=== PATIENT | male | born 2000 | race Two or more races ===

== ENCOUNTER 2024-02-10 10:53 | Day surgery (SDC) | payer OTHER, SELFPAY ==
--- NOTE | ~2024-02-10 | CT_ITS ---
EXAMINATION: CT CHEST WITH CONTRAST CLINICAL INFORMATION: Alkali ingestion COMPARISON: None available. TECHNIQUE: Multidetector volumetric CT imaging of the chest was obtained after the administration of 50 mL of Omnipaque 350 intravenous contrast without immediate adverse reactions. Axial MIP volume rendering provided. Sagittal and coronal reformatted images were obtained. This CT examination was performed using dose optimization techniques as appropriate, variously including the following: *Automated exposure control *Adjustment of mA and/or kV according to patient size (this includes techniques or standardized protocols for targeted exams where dose is matched to indication/reason for exam; i.e. extremities or head) *Use of iterative reconstruction technique DLP: 402 mGy-cm FINDINGS: LUNGS/PLEURA: 2 mm nodule right upper lobe (series 5, image 159). 3 mm nodule anterior aspect left lower lobe (series 5, image 201). No focal consolidation. No pneumothorax. Left basilar atelectasis. Central airways are patent. MEDIASTINUM: Heart is not enlarged. No pericardial effusion. No coronary artery calcifications. Aorta is nonaneurysmal. Main pulmonary artery is not enlarged. No enlarged lymph nodes per size criteria. Visualized portions of the thyroid are unremarkable. Visualized portions of the thoracic esophagus are unremarkable. AXILLA: No lymphadenopathy. UPPER ABDOMEN: Slightly decreased hepatic attenuation suggesting hepatic steatosis. OSSEOUS STRUCTURES: Unremarkable. CT/CT chest w IV con IMPRESSION: 1. No acute process of the chest identified. 2. Bilateral pulmonary nodules the largest measuring up to 3 mm. Follow-up as per Fleischner criteria. 3. Slightly decreased hepatic attenuation suggesting hepatic steatosis. Various management parameters for solitary pulmonary nodules are in the literature. According to the Fleischner Society, recommendations for pulmonary nodules are as follows: According to the UPDATED 2017 Fleischner Society recommendations, the advised follow-up imaging for solid nodules < 6 mm is: HIGH RISK PATIENT: Optional CT at 12 months.
[2024-02-10 10:55] VITALS: BP 138/90; PULSE 74; RESP 74; TEMP 36.9; O2SAT 97; BMI 38.2
--- NOTE | 2024-02-10 11:11 | PC.NURSE ---
Called [facility] regarding patient instructed should get a chest xray or ct scan to check for aspiration. keep npo have him rinse his mouth out in a couple hours check for blisters or irritation. Will notify MD and RN taking care of patient.
[2024-02-10 11:22] VITALS: PULSE 84; RESP 16; O2SAT 98
--- NOTE | 2024-02-10 11:23 | PC.NURSE ---
NO VOMITING, STATES IRRITATION WITH SWALLOWING, HANDLES SECRETION, AWAITING PROVIDER
--- NOTE | 2024-02-10 11:26 | ED_ITS ---
[facility] - General Adult General Chief complaint: General Medical Stated complaint: Ingested chemical? Time Seen by Provider: 02/10/24 11:12 Source: patient Mode of arrival: ambulatory History of Present Illness [facility] narrative: 23-year-old male with history and clinical presentation of accidental ingestion of alkaline based liquid that blew up in his face and he inadvertently swallowed, the chemical is used to clean parts at his work. Patient reports vomiting once. Denies eye contact and reports burning in the back of his throat. Related Data Allergies Allergy/AdvReac Type Severity Reaction Status Date / Time No Known Allergies Allergy Verified 02/10/24 10:56 Review of Systems 2 Review of Systems: Pertinent positives and negatives as stated in [facility] Past Medical History Source: nursing notes reviewed Social History Social History Smoked in Last 30 Days: No Use of substances other than those prescribed or required for medical reasons: No Advance Directives: No Advance Directives Information Provided: No Do you have a plan to hurt others: No Plan Physical Exam ED Vital Signs: Vital Signs - 24 hr 02/10/24 10:55 02/10/24 11:22 02/10/24 13:38 Temperature 98.5 F 98.3 F Pulse Rate 74 84 69 Respiratory Rate 74 H 16 16 Blood Pressure 138/90 H 108/74 Pulse Oximetry 97 98 99 Oxygen Delivery Method Room Air Room Air Room Air 02/10/24 15:01 02/10/24 15:17 Temperature 97.7 F 97.7 F Pulse Rate 86 85 Respiratory Rate 17 18 Blood Pressure 120/71 126/83 Pulse Oximetry 97 97 Oxygen Delivery Method Room Air Room Air BMI result Body Mass Index 38.2 VITAL SIGNS: Reviewed. GENERAL: Well developed, well nourished, in no acute distress. HEAD: Normocephalic/atraumatic EYES: PERRLA, EOMI, no irritation or lesions noted EARS: Ext canals without abnormality NOSE: Nares patent bilateral OROPHARYNX: no oral lesions noted, posterior pharynx clear and non-erythematous without noted tonsillar enlargement/erythema/exudates, no blisters or lesions noted NECK: Supple, no adenopathy LUNGS: Normal breath sounds. No adventitious sounds or accessory muscle use. SpO2<98> CARDIOVASCULAR: Regular rate and rhythm without noted murmurs, no JVD or lower extremity edema. ABDOMEN: Soft, non-tender, non-distended with bowel sounds. MUSCULOSKELETAL: No tenderness, deformities, or effusions noted on gross inspection. EXTREMITIES: No cyanosis, clubbing or edema. SKIN: Inspection of the skin reveals no rashes NEUROLOGIC: Alert and oriented x 4. Strength and sensation to light touch were grossly intact x 4. Medications Administered Discontinued Medications Generic Name Dose Route Start Last Admin Trade Name Freq PRN Reason Stop Dose Admin Iohexol 65 ml 02/10/24 13:07 02/10/24 13:09 Iohexol 350 Mg/Ml 100 Ml Infus..Btl IV 02/10/24 13:08 65 ml ONCE ONE Administration Ondansetron HCl 4 mg 02/10/24 11:45 02/10/24 12:23 Ondansetron Hcl 4 Mg/2 Ml Vial IVPUSH 02/10/24 11:46 4 mg ONCE ONE Administration Medical Decision Making Medical Decision Making MDM Narrative: 23-year-old male with history and clinical presentation of accidental ingestion of alkaline pH liquids. Last meal 529, reports burning in the back of his throat without obvious lesions. 1213: I discussed case with Dr. Méndez, gastroenterology who recommends CT with IV contrast of chest to include upper abdomen and will perform upper endoscopy this afternoon as well, he is in agreement for NPO. I reviewed all investigations and hematologic indices are negative for leukocytosis/left shift/anemia/thrombocytopenia. VBG demonstrates pH-7.40 and chemistry indices are negative for GIANA or electrolyte derangements there is subtle detected transaminases without associated fever/chills/abdominal discomfort. Awaiting CT scan results and plan for patient to go to the OR for EGD. 1507: CT scan of the chest benign in nature, there are no acute findings. Patient has been transferred up to the OR for EGD. 1555: I confirmed that patient is discharged from the PACU. Differential Diagnosis Differential Diagnoses: The differential diagnosis associated with the presentation includes Please see the discussion above Admission/Observation Consideration of admission/observation: Escalation of care including admission/observation considered Please see the discussion above Consult Healthcare Provider Management of the patient was discussed with: Drill Hand Please see the discussion above Lab Data MDM Lab Attestation statement: I reviewed the patient's lab results. Please see the discussion above 02/10/24 12:22 02/10/24 12:22 Labs: Lab Results 02/10/24 02/10/24 02/10/24 Range/Units 12:22 12:23 14:17 WBC 6.2 (4.8-10.8) X10*3/uL RBC 4.87 (4.60-5.80) X10*6/uL Hgb 14.3 (14.0-18.0) g/dl Hct 41.4 L (42.0-52.0) % MCV 85.0 (80.0-98.0) fL MCH 29.4 (27.0-33.0) pg MCHC 34.5 (31.0-36.0) g/dl RDW 11.6 (11.0-16.0) % Plt Count 245 (160-400) X10*3/uL MPV 9.9 (9.4-12.4) fL Immature Gran % (Auto) 0.2 (0.0-0.4) % Neut % (Auto) 51.4 (45-73) % Lymph % (Auto) 36.9 (20-40) % [place] % (Auto) 8.8 (2-11) % Eos % (Auto) 2.1 (0-4) % Baso % (Auto) 0.6 (0-2) % Lymph # (Auto) 2.3 (1.2-4.9) X10*3/uL [place] # (Auto) 0.6 (0.1-1.2) X10*3/uL Eos # (Auto) 0.1 (0.0-0.4) X10*3/uL Baso # (Auto) 0.0 (0.0-0.2) X10*3/uL Abs Immat Gran (auto) 0.01 (0.00-0.03) X10*3/uL Absolute Neuts (auto) 3.2 (2.0-8.3) x10*3/uL Absolute Nucleated RBC 0.000 (0.0-0.012) X10*3/uL Nucleated RBC % (auto) 0.0 (0.0-0.2) /100WBC VBG pH 7.40 (7.32-7.43) VBG pCO2 45 mmHg VBG pO2 53 mmHg VBG HCO3 28 H (22-26) mmol/L VBG O2 Saturation 84.0 % VBG Base Excess 2.9 mmol/L Sodium 143 (135-145) mmol/L Potassium 3.5 (3.3-5.1) mmol/L Chloride 104 (96-108) mmol/L Carbon Dioxide 26 (22-29) mmol/L Anion Gap 17 (12-20) BUN 12 (9-16) mg/dL Creatinine 0.81 (0.5-1.4) mg/dL Estim Creat Clear Calc 170.7 Estimated GFR > 60 Random Glucose 83 (60-115) mg/dL Calcium 10.0 (8.4-10.2) mg/dL Total Bilirubin 0.6 (0.0-1.0) mg/dL AST 53 H (5-37) U/L ALT 62 H (0-40) U/L Alkaline Phosphatase 60 (39-117) U/L Total Protein 8.6 H (6.5-8.0) g/dL Albumin 4.7 (3.5-5.0) g/dL Urine Color Yellow Urine Appearance Clear Urine pH 6.0 (5.0-9.0) Ur Specific [place] >= 1.030 H (1.005-1.025) Urine Protein Negative (Neg-Trace) mg/dL Urine Glucose (UA) Negative (Negative) mg/dL Urine Ketones 15 (Negative) mg/dL Urine Blood Negative (Negative) Urine Nitrite Negative (Negative) Ur Leukocyte Esterase Negative (Negative) Radiology Impression Discussion of test interpretation with radiology: I have reviewed the radiologist's reading. Radiologist Impression: Please see the discussion above Critical Care Time Critical Care Time Critical Care Time: Yes Total Critical Care Time: 60 Attestation: I personally attest to this time spent taking care of the patient. Discharge Plan Discharge Clinical Impression: Accidental ingestion of toxic substance Patient Disposition: Home, Self-Care Discharge Date/Time: 02/10/24 14:45
--- NOTE | 2024-02-10 12:20 | PC.NURSE ---
20gIV placed in the left forearm - labs obtained/sent to lab. pt speaking w/ Dr. Montalvo in regards to plan of care at this time. pt c/o burning sensation/itchiness in throat throughout post ingestion of chemical. pt denies pain. airway patent. pt able to speak in full/clear sentences w/o difficulty. no sob/wob noted. respirations even and unlabored. pt positioned upright to promote patent airway. plan of care ongoing. call guillen placed within reach.
[2024-02-10] MEDS: ondansetron HCL 4 MG/2 ML VIAL IVPUSH (12:23)
[2024-02-10 12:27] LABS: MANUAL DIFF FLAG NO
[2024-02-10 12:29] LABS: Basophils Percent Auto 0.6 % (0-2); Eosinophils Absolute Auto 0.1 X10*3/uL (0.0-0.4); Eosinophils Percent Auto 2.1 % (0-4); Hematocrit 41.4 % (42.0-52.0); Hemoglobin 14.3 g/dl (14.0-18.0); Imm Gran Abs Auto 0.01 X10*3/uL (0.00-0.03); Imm Gran Pct Auto 0.2 % (0.0-0.4); Lymphocytes Absolute Auto 2.3 X10*3/uL (1.2-4.9); Lymphocytes Percent Auto 36.9 % (20-40); Mean Corpuscular HGB Conc 34.5 g/dl (31.0-36.0); Mean Corpuscular Hemoglobin 29.4 pg (27.0-33.0); Mean Platelet Volume 9.9 fL (9.4-12.4); Monocytes Absolute Auto 0.6 X10*3/uL (0.1-1.2); Monocytes Percent Auto 8.8 % (2-11); Neutrophils Absolute Auto 3.2 x10*3/uL (2.0-8.3); Neutrophils Percent Auto 51.4 % (45-73); Platelet Count 245 X10*3/uL (160-400); Red Blood Count 4.87 X10*6/uL (4.60-5.80); Red Cell Distribution Width 11.6 % (11.0-16.0); White Blood Count 6.2 X10*3/uL (4.8-10.8)
[2024-02-10 12:30] LABS: Venous Blood Gas Refer to POC result
[2024-02-10 12:31] LABS: VBG Base Excess 2.9 mmol/L; VBG HCO3 28 mmol/L (22-26); VBG pCO2 45 mmHg; VBG pO2 53 mmHg
[2024-02-10 12:44] LABS: Alanine Aminotransferase 62 U/L (0-40); Albumin Level 4.7 g/dL (3.5-5.0); Alkaline Phosphatase 60 U/L (39-117); Anion Gap 17 (12-20); Aspartate Amino Transferase 53 U/L (5-37); Bilirubin Total 0.6 mg/dL (0.0-1.0); Blood Urea Nitrogen 12 mg/dL (9-16); Carbon Dioxide 26 mmol/L (22-29); Chloride 104 mmol/L (96-108); Creatinine Clr Calc Pharmacy 170.7; Estimated Glomerular Filt Rate > 60; Glucose Random 83 mg/dL (60-115); Potassium 3.5 mmol/L (3.3-5.1); Sodium 143 mmol/L (135-145); Total Protein 8.6 g/dL (6.5-8.0)
--- NOTE | 2024-02-10 13:04 | PC.NURSE ---
pt to CT at this time.
[2024-02-10] MEDS: iohexoL 350 MG/ML 100 ML INFUS..BTL 65 ML IV (13:09)
[2024-02-10 13:38] VITALS: BP 108/74; PULSE 69; RESP 16; TEMP 36.8; O2SAT 99
--- NOTE | 2024-02-10 13:39 | PC.NURSE ---
pt returned from CT at this time. vss and up to date. nsr on the cardiac sonographer. pt denies pain. airway remains patent. no sob/wob noted. respirations remain even and unlabored. partner bedside. call guillen placed within reach.
--- NOTE | 2024-02-10 13:49 | MHC.SHP ---
Pre-Procedural Eval Section A - 24 Hr Update-Section A only Date of Service: 02/10/24 The patient is an INPATIENT: No Changes since office visit: No Cold of Flu in the past 2 weeks, No New Medical Problems, No Changes in Medication and No Patient answered all questions The patient has been examined within 24 hours of the surgical procedure. The History & Physical has been completed within 30 days and I have reviewed it.: Yes Section B - Complete if H&P > 30 days Chief Complaint: Ingested chemical? Allergies: Allergies Allergy/AdvReac Type Severity Reaction Status Date / Time No Known Allergies Allergy Verified 02/10/24 10:56 Plan I have reviewed the history and physical and performed a pertinent physical examination on my patient. No changes have occurred unless specified. Time Spent With Patient Time: Total time managing care of this patient today ____ minutes.
--- NOTE | 2024-02-10 14:19 | PC.NURSE ---
report given to BHARGAV Nunez in OR at this time.
--- NOTE | 2024-02-10 14:27 | HO.ANESPROP2 ---
[facility] Active Problems Active Problems: All Active Problems Accidental ingestion of toxic substance (Acute) Past Medical History Functional capacity: independent ambulation Family History Family history of problems with anesthesia: No Surgical History History of Problems with Anesthesia: No Social History Social History Smoked in Last 30 Days: No Use of substances other than those prescribed or required for medical reasons: No Advance Directives: No Advance Directives Information Provided: No Do you have a plan to hurt others: No Plan Meds Allergies Allergy/AdvReac Type Severity Reaction Status Date / Time No Known Allergies Allergy Verified 02/10/24 10:56 Exam Height,Weight and Vital Signs: Height 5 ft 8 in Weight 113.9 kg Last Vital Signs Temp 98.3 F 02/10/24 13:38 Pulse 69 02/10/24 13:38 Resp 16 02/10/24 13:38 BP 108/74 02/10/24 13:38 Pulse Ox 99 02/10/24 13:38 O2 Del Method Room Air 02/10/24 13:38 Pertinent Lab Results Pertinent Lab Results: Laboratory Tests 02/10/24 02/10/24 12:22 12:23 WBC 6.2 RBC 4.87 Hgb 14.3 Hct 41.4 L MCV 85.0 MCH 29.4 MCHC 34.5 RDW 11.6 Plt Count 245 MPV 9.9 Immature Gran % (Auto) 0.2 Neut % (Auto) 51.4 Lymph % (Auto) 36.9 [place] % (Auto) 8.8 Eos % (Auto) 2.1 Baso % (Auto) 0.6 Lymph # (Auto) 2.3 [place] # (Auto) 0.6 Eos # (Auto) 0.1 Baso # (Auto) 0.0 Abs Immat Gran (auto) 0.01 Absolute Neuts (auto) 3.2 Absolute Nucleated RBC 0.000 Nucleated RBC % (auto) 0.0 VBG pH 7.40 VBG pCO2 45 VBG pO2 53 VBG HCO3 28 H VBG O2 Saturation 84.0 VBG Base Excess 2.9 Sodium 143 Potassium 3.5 Chloride 104 Carbon Dioxide 26 Anion Gap 17 BUN 12 Creatinine 0.81 Estim Creat Clear Calc 170.7 Estimated GFR > 60 Random Glucose 83 Calcium 10.0 Total Bilirubin 0.6 AST 53 H ALT 62 H Alkaline Phosphatase 60 Total Protein 8.6 H Albumin 4.7 Airway Mallampati Class: II TM Dist: >3cm Neck ROM: Full Heart: RRR Lungs: CTA Assessment and Plan Assessment Anesthesia Assessment: Anesthesia Plan Discussed Final Anesthetic Review Family History of Problems with Anesthesia: No History of Problems with Anesthesia: No NPO: Yes ASA Class: II and Emergency Final Preanesthetic Review: Meds/Allgs Chart Reviewed, Consent Obtained/Reviewed and Anes Risks/Benef Reviewed Patient Risk: Intermediate Procedure Risk: Low Anesthetic Plan Anesthetic Plan: MAC: and Other Disposition: Standard PACU
[2024-02-10 14:30] LABS: Appearance Urine Clear; Color Urine Yellow; Glucose Urine UA Negative (Negative); Leukocyte Esterase Urine Negative (Negative); Nitrite Urine Negative (Negative); Specific Gravity - Urine >= 1.030 (1.005-1.025); Urine Blood Negative (Negative); Urine Ketones 15 mg/dL (Negative); Urine Protein Negative (Neg-Trace)
--- NOTE | 2024-02-10 14:34 | PC.NURSE ---
pt being transferred to have endoscopy completed at this time.
--- NOTE | 2024-02-10 15:00 | PM.OP ---
Brief Operative Note Date of Service: 02/10/24 Pre-op diagnosis: caustic ingestion Post-op diagnosis: same Procedure: EGD Surgeon: Vito Méndez MD Anesthesia: MAC Was an Recreation Professor used for this Procedure?: No Estimated blood loss (mL): 2 Pathology: other Condition: stable Disposition: PACU
[2024-02-10 15:01] VITALS: BP 120/71; PULSE 86; RESP 17; TEMP 36.5; O2SAT 97
--- NOTE | 2024-02-10 15:10 | HO.POSTANES ---
Post Anesthesia Evaluation Post Anesthesia Evaluation Date of Service: 02/10/24 Vital Signs: Vital Signs Temp Pulse Resp BP Pulse Ox O2 Del Method 02/10/24 15:01 97.7 F 86 17 120/71 97 Room Air 02/10/24 13:38 98.3 F 69 16 108/74 99 Room Air 02/10/24 11:22 84 16 98 Room Air 02/10/24 10:55 98.5 F 74 74 H 138/90 H 97 Room Air Anesthesia: Monitored Mental Status: Awake Pain Control: Satisfactory Nausea/Vomiting: None Hydration: Adequate Anesthesia-Related Issues: No Anes. Related Issues
[2024-02-10 15:17] VITALS: BP 126/83; PULSE 85; RESP 18; TEMP 36.5; O2SAT 97
--- NOTE | 2024-02-10 23:18 | OP_ITS ---
DATE OF SERVICE: 02/10/2024 SURGEON: Vito Méndez MD INDICATIONS: Caustic ingestion. PREOPERATIVE DIAGNOSIS: POSTOPERATIVE DIAGNOSIS: PROCEDURE PERFORMED: ESTIMATED BLOOD LOSS: COMPLICATIONS: ANESTHESIA: ASSISTANTS: SPECIMENS: PROCEDURE: Upper endoscopy with biopsy. MEDICATIONS: Monitored anesthesia care. DESCRIPTION OF PROCEDURE: A history and physical performed. The risks and benefits of the procedure were explained to the patient. Informed consent was obtained. The patient was placed in a left lateral decubitus position. The Olympus video gastroscope was introduced into the esophagus, stomach, and duodenum. Examination was performed. The scope was removed. He tolerated the procedure well and was taken to recovery area in stable condition. FINDINGS: Esophagus: The esophagus was normal. There was no evidence of erythema or chemical esophagitis. Stomach: Showed no evidence of masses, ulcers, or polyps. Antral biopsies were obtained to rule out H pylori. Duodenum: The bulb and 2nd portion were normal. IMPRESSION: Normal upper endoscopy. No esophagitis. RECOMMENDATIONS: The patient may be discharged to home. He can start with liquids and advance his diet as tolerated. MD BRET Weller/TATIANA / [id number] MTDD
--- NOTE | 2024-02-10 23:59 | CONS_ITS ---
DATE OF SERVICE: 02/10/2024 REFERRING PHYSICIAN: Dr. Montalvo REASON FOR CONSULTATION: Caustic ingestion. HISTORY OF PRESENT ILLNESS: The patient is a healthy 23-year-old man who was brought by ambulance to the emergency department today after a caustic ingestion at work. 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 The chemical material safety data sheet are reviewed and it appears to contain sodium carbonate and sodium hydroxide. He complains of a burning sensation in the back of his throat. He denies any difficulty swallowing. He did induce vomiting immediately after the ingestion in and presented to the emergency department. He denies any prior history of toxic ingestions. He has never had esophageal problems, reflux, or peptic ulcer disease. PAST MEDICAL HISTORY: He denies other medical or surgical illnesses. CURRENT MEDICATIONS: He is not take any routine medications. ALLERGIES: THERE ARE NONE REPORTED. FAMILY HISTORY: This is reviewed with the patient, is noncontributory. SOCIAL HISTORY: There is no current substance abuse. REVIEW OF SYSTEMS: SKIN: No pruritus. HEENT: Negative. CARDIOPULMONARY: He denies shortness of breath or chest pain. GASTROINTESTINAL: As above. GENITOURINARY: Negative. NEUROPSYCHIATRIC: Negative. PHYSICAL EXAMINATION: GENERAL: Shows a pleasant male, lying comfortably in bed. VITAL SIGNS: Reviewed in the electronic medical record and are stable. SKIN: Anicteric. HEENT: Shows no scleral icterus. Oropharynx exam is normal. NECK: Without lymphadenopathy or thyromegaly. LUNGS: Clear. HEART: Shows a regular rate and rhythm. S1, S2. No murmur. ABDOMEN: Soft. No focal masses or tenderness. Bowel sounds are present. No organomegaly is noted. EXTREMITIES: Without edema. DIAGNOSTIC DATA: Laboratory data including blood work is reviewed. Imaging of his chest and abdomen have been obtained. Final report is pending, but I do not see any obvious esophageal issues on preliminary review of the CT scan. IMPRESSION: Caustic ingestion. PLAN: We will await the final report on his CT scan. We will plan endoscopy following this to evaluate for any endoscopic evidence of damage to the esophagus or stomach from the caustic ingestion. He understands risks and benefits and agrees to proceed. Thanks for asking me to see him. I will follow him in the hospital with you. MD BRET Weller/TATIANA / [id number]
== END 2024-02-10 15:24 | disposition home or self-care (01) ==
LOC: HO.ED 12:33 → HO.SSS 12:59
PROVIDERS: Internal Medicine Gastroenterology; Emergency Provider Student in an Organized Health Care Education/Training Program; Visit Provider Student in an Organized Health Care Education/Training Program
PROC: 0DJ08ZZ Inspection of Upper Intestinal Tract, Via Natural or Artificial Opening Endoscopic (ICD-10-PCS; CPT 43235; principal; 2024-02-10 14:00)
DX: T54.3X1A Toxic effect of corrosive alkalis and alkali-like substances, accidental (unintentional), initial encounter (principal); Y92.69 Other specified industrial and construction area as the place of occurrence of the external cause; R07.0 Pain in throat; R91.8 Other nonspecific abnormal finding of lung field
CPT/HCPCS: 43239; 36415; 71260; 80053; 81003; 82803; 85025; 88305; 88313; 88342; 96374; 99284; 99285; J2405; J2704